=== PATIENT | male | born 2005 | race Two or more races ===

== ENCOUNTER 2024-12-19 23:50 | Emergency (ER) | payer MEDICAID, SELFPAY ==
[2024-12-19 23:51] VITALS: BMI 34.7
[2024-12-19 23:59] VITALS: BP 139/80; PULSE 80; RESP 18; TEMP 36.9; O2SAT 98
--- NOTE | 2024-12-20 05:11 | PD.EDMALE ---
ED Male Genitalurinary RME/HPI General Chief complaint: General Adult/Misc Complain Stated complaint: BLOOD IN STOOL Time Seen by Provider: 12/20/24 00:09 Arrival date/time: 12/19/24 23:50 19M with no significant PMH presents to ED with possible red blood in stool for 1 day. Patient denies intentional weight loss, ab pain, and rectal pain. Patient did drink a bright red Icee today. Limitations: no limitations Related Data Home Medications ?Medication ?Instructions ?Recorded ?Confirmed No Known Home Medications 12/27/20 12/30/23 Allergies Allergy/AdvReac Type Severity Reaction Status Date / Time No Known Allergies Allergy Verified 12/19/24 23:53 Review of Systems Review of Systems Systems Reviewed: All systems reviewed, normal except as documented Constitutional Constitutional: Reports system reviewed and no additional complaints, except as documented, Denies fever(s) and Denies headache(s) ENT Ears, Nose, Mouth, and Throat: Denies disequilibrium and Denies headache(s) Cardiovascular Cardiovascular: Reports system reviewed and no additional complaints, except as documented, Denies chest pain and Denies dyspnea Respiratory Respiratory: Reports system reviewed and no additional complaints, except as documented, Denies cough and Denies dyspnea Gastrointestinal Gastrointestinal: Reports system reviewed and no additional complaints, except as documented, Reports as per HPI, Denies abdominal pain, Reports hematochezia, Denies nausea and Denies vomiting Neurologic Neurologic: Reports system reviewed and no additional complaints, except as documented, Denies confusion, Denies disequilibrium and Denies headache(s) Psychiatric Psychiatric: Denies confusion Past Medical History Past Medical History CARDIAC: Negative Congestive Heart Failure RESPIRATORY: Negative Chronic Obstructive Pulmonary Disease (COPD) GENITOURINARY: Negative Renal Disease ENDOCRINE: Negative Diabetes Mellitus Type 1 or Diabetes Mellitus Type 2 Social History SMOKING STATUS: Never smoker ED Exam General Limitations: Present no limitations General appearance: Present alert and in no apparent distress Head Head exam: Present atraumatic Eye Eye exam: Present normal appearance, PERRL and EOMI ENT ENT exam: Present normal exam, normal oropharynx and mucous membranes moist Neck Neck exam: Present normal inspection, full ROM and trachea midline Chest Chest inspection: Present normal inspection and symmetric chest wall rise Respiratory Respiratory exam: Present normal lung sounds bilaterally Cardiovascular Cardiovascular exam: Present regular rate, normal rhythm and normal heart sounds Abdominal Exam Abdominal exam: Present soft and normal bowel sounds Extremities Exam Extremities exam: Present normal inspection and full ROM Back Exam Back exam: Present normal inspection and full ROM Neurological Exam Neurological exam: Present alert, oriented X3 and CN II-XII intact Psychiatric Psychiatric exam: Present normal affect and normal mood Skin Skin exam: Present warm, dry, intact and normal color Course Quality Measures none Orders Category Date Time Status Occult Blood,Stool (Nursing) NOW Care 12/20/24 00:10 Completed Vital Signs Vital signs: Vital Signs Temperature 98.4 F 12/19/24 23:59 Pulse Rate 80 12/19/24 23:59 Respiratory Rate 18 12/19/24 23:59 Blood Pressure 139/80 H 12/19/24 23:59 Pulse Oximetry (%) 98 12/19/24 23:59 Oxygen Delivery Method Room Air 12/19/24 23:59 O2 at 98% on RA and WNLs Urogenital - Male MDM Narrative MDM Narrative:: 19M with no significant PMH presents to ED with possible red blood in stool for 1 day. Patient denies intentional weight loss, ab pain, and rectal pain. Patient did drink a bright red Icee today. Physical exam reveals male in no distress. Patient declines rectal exam. Patient is afebrile, calm, and alert. Occult stool neg. Red stool likely from food coloring. Patient data External records reviewed:: [facility] previous records Clinical information provided by:: patient Social determinants that could affect healthcare access:: none Patient has the following chronic illnesses:: none How is presenting disease/condition affected by chronic disease/condition?: no chronic disease Evaluation data The following diagnostics were reviewed and interpreted by me:: lab results Lab and/or radiology exams considered but not ordered:: ordered Interpretation Summary: above Medications / Prescriptions Medications or Prescriptions considered but not ordered:: not ordered Medication administrations:: n/a Consultations Consultation(s) initiated? (list below): No Diagnosis Urogenital Male Differential Diagnosis: urinary tract infection, priapism, urethritis, epididymitis, genital herpes simplex, prostatitis, acute retention of urine, inguinal hernia and other (encounter for screening fecal occult blood testing) Most likely diagnosis given after review of the tests above:: encounter for screening fecal occult blood testing Admission Indicated Admission indicated?: not indicated Admission Request Was there a request for admission?: No Disposition Plan Disposition Plan: Discharge Discharge Attestation Discharge Attestation: The patient and all family members were given an opportunity to ask questions and understood the discharge instructions. Discharge instructions specifically effects, indications for sooner follow up or return to the emergency department, and the expected course of current diagnosis. Patient condition: Stable Discharge Plan Plan Patient Disposition: HOME (Self Care) Disposition Comment: Stable Prescriptions/Referrals Prescriptions/Med Rec: No Action No Known Home Medications Problem List Clinical Impression: Encounter for screening fecal occult blood testing Patient/Caregiver Discharge Instructions Additional Instructions: Please follow-up with PCP within 24-48 hours and return immediately if symptoms worsen. Red stool likely from food coloring from Icee you had today. Print Language: [place] Stand Alone Forms: Patient Portal Info Letter MARCIN/ANNA Supervising Physician MARCIN/ANNA Supervising Physician: Dr. Segura
== END 2024-12-20 00:40 | disposition home or self-care (01) ==
LOC: SERX 12-20 00:37
PROVIDERS: Emergency Provider Emergency Medicine; PCP Physician Assistant
DX: K92.1 Melena (principal)
CPT/HCPCS: 99283

== ENCOUNTER → 2024-12-28 | Outpatient (BNVA) | payer MEDICAID, SELFPAY | END | disposition home or self-care (01) | PROVIDERS: PCP Physician Assistant; Referring Provider Physician Assistant; Visit Provider Urology | DX: N50.3 Cyst of epididymis (principal); E66.01 Morbid (severe) obesity due to excess calories; Z68.33 Body mass index [BMI] 33.0-33.9, adult | CPT/HCPCS: 81003; 99212; G0463 ==